=== PATIENT | male | born 1935 | race Caucasian/White ===

== ENCOUNTER 2018-05-05 16:51 | Emergency (ER) | payer MEDICARE, BC ==
--- NOTE | 2018-05-05 17:13 | ER Document Report ---
ED Medical Screen (RME) - General Chief Complaint: High Blood Sugar Stated Complaint: BLOOD SUGAR ISSUE Time Seen by Provider: 05/05/18 17:07 Notes: RAPID MEDICAL EVALUATION DISCLOSURE I have seen this patient as part of a Rapid Medical Evaluation and, if applicable, placed any initially appropriate orders. The patient will be seen and fully evaluated, including a full history and physical exam, by a provider ( in Main ED or Fast Track) when a room becomes available. 82-year-old male here with complaints of elevated blood sugars of 479 checked while he was at his PCP office. They sent him over for further evaluation due to the high sugars. He has chronic fatigue and fibromyalgia but denies any other new symptoms. He denies cough congestion runny nose sore throat nausea vomiting diarrhea dysuria frequency hesitancy chest/abdominal pain shortness of breath. He takes Lantus in the morning and evening and then takes other insulins throughout the day. He states he has not missed any doses of his medications recently nor has he had any changes in the dosing. EXAM CTAB RRR TRAVEL OUTSIDE OF THE [place] IN LAST 30 DAYS: No - Related Data Allergies/Adverse Reactions: No Known Allergies Allergy (Verified 01/16/15 19:00) Past Medical History - Past Medical History Cardiac Medical History: Reports: Hx Hypertension Pulmonary Medical History: Reports: Hx COPD Endocrine Medical History: Reports: Hx Diabetes Mellitus Type 2 Renal/ Medical History: Denies: Hx Peritoneal Dialysis Past Surgical History: Reports: Hx Cholecystectomy, Hx Nose Surgery - for deviated septum - Immunizations Hx Diphtheria, Pertussis, Tetanus Vaccination: Yes Physical Exam - Vital signs Vitals: Temp Pulse Resp BP Pulse Ox 98.3 F 71 22 H 152/70 H 94 05/05/18 16:56 05/05/18 16:56 05/05/18 16:56 05/05/18 16:56 05/05/18 16:56 Course - Vital Signs Vital signs: Temp Pulse Resp BP Pulse Ox 98.3 F 71 22 H 152/70 H 94 05/05/18 16:56 05/05/18 16:56 05/05/18 16:56 05/05/18 16:56 05/05/18 16:56
--- NOTE | 2018-05-05 17:42 | RADIOLOGY REPORT (SQ) ---
EXAM DESCRIPTION: CHEST 2 VIEWS COMPLETED DATE/TIME: 05/05/2018 5:31 pm REASON FOR STUDY: eval pneumonia COMPARISON: 2009 NUMBER OF VIEWS: Two view. TECHNIQUE: Frontal and lateral radiographic views of the chest acquired. LIMITATIONS: None. FINDINGS: LUNGS AND PLEURA: No opacities, masses or pneumothorax. No pleural effusion. MEDIASTINUM AND HILAR STRUCTURES: No masses. No contour abnormalities. HEART AND VASCULAR STRUCTURES: Heart normal in size and contour. No evidence for failure. BONES: No acute findings. HARDWARE: None in the chest. OTHER: No other significant finding. IMPRESSION: No acute cardiopulmonary disease. Stable chest. TECHNICAL DOCUMENTATION: JOB ID: [id number] 1996 [employer]- All Rights Reserved Reading location - IP/workstation name: [email or web address]
[2018-05-05 17:58] LABS: ABSOLUTE BASOPHILS # (AUTO) 0.1 10^3/uL (0.0-0.2); ABSOLUTE EOSINOPHILS # (AUTO) 0.6 10^3/uL (0.0-0.6); ABSOLUTE MONOCYTES (AUTO) 0.7 10^3/uL (0.1-1.4); ABSOLUTE NEUT (AUTO) 5.4 10^3/uL (1.7-8.2); EOSINOPHILS % (AUTO) 6.4 % (0-6); HEMATOCRIT 41.1 % (37.9-51.0); HEMOGLOBIN 13.9 g/dL (13.5-17.0); LYMPHOCYTES % (AUTO) 22.7 % (13-45); MEAN CORPUSCULAR HEMOGLOBIN 31.7 pg (27.0-33.4); MEAN CORPUSCULAR HGB CONC 33.8 g/dL (32.0-36.0); MEAN CORPUSCULAR VOLUME 94 fl (80-97); MONOCYTES % (AUTO) 8.3 % (3-13); PLATELET COUNT 161 10^3/uL (150-450); RED BLOOD COUNT 4.38 10^6/uL (4.35-5.55); RED CELL DISTRIBUTION WIDTH 12.8 % (11.5-14.0); SEGMENTED NEUTROPHILS % (AUTO) 61.6 % (42-78); TOTAL CELLS COUNTED % (AUTO) 100 %; WHITE BLOOD COUNT 8.7 10^3/uL (4.0-10.5)
[2018-05-05 18:00] LABS: VENOUS BLOOD BASE EXCESS 4.5 mmol/L; VENOUS BLOOD HCO3 29.7 mmol/L (20-32); VENOUS BLOOD PCO2 46.3 mmHg (35-63); VENOUS BLOOD PH 7.43 (7.30-7.42)
[2018-05-05 18:18] LABS: ALANINE AMINOTRANSFERASE 73 U/L (21-72); ALBUMIN 4.1 g/dL (3.5-5.0); ALKALINE PHOSPHATASE 115 U/L (38-126); ANION GAP 12 (5-19); ASPARTATE AMINO TRANSFERASE 58 U/L (17-59); BILIRUBIN,DIRECT 0.3 mg/dL (0.0-0.4); BILIRUBIN,TOTAL 0.5 mg/dL (0.2-1.3); BLOOD UREA NITROGEN 25 mg/dL (7-20); CALCIUM 9.5 mg/dL (8.4-10.2); CARBON DIOXIDE 30 mmol/L (22-30); CHLORIDE 99 mmol/L (98-107); GLUCOSE 390 mg/dL (75-110); POTASSIUM 5.1 mmol/L (3.6-5.0); SODIUM 140.8 mmol/L (137-145); TOTAL PROTEIN 7.4 g/dL (6.3-8.2)
[2018-05-05 19:07] LABS: APPEARANCE,URINE CLEAR; BILIRUBIN,URINE NEGATIVE (NEGATIVE); COLOR,URINE YELLOW; GLUCOSE, URINE >=500 mg/dL (NEGATIVE); KETONES,URINE NEGATIVE (NEGATIVE); LEUKOCYTE ESTERASE,URINE NEGATIVE (NEGATIVE); NITRITE,URINE NEGATIVE (NEGATIVE); PROTEIN,URINE NEGATIVE (NEGATIVE); URINE SPECIFIC GRAVITY 1.022; UROBILINOGEN,URINE NEGATIVE mg/dL (<2.0)
[2018-05-05] MEDS ORDERED: NORMAL SALINE 1000 ML 1,000 ML IV ONE (19:56)
[2018-05-05] MEDS ORDERED: INSULIN REG, HUMAN 100 UNIT/ML 3 ML VIAL (PYX) SUBCUT ONE (20:11)
--- NOTE | 2018-05-05 21:09 | ER Document Report ---
ED Blood Sugar Problem - General Mode of Arrival: Ambulatory Information source: Patient TRAVEL OUTSIDE OF THE [place] IN LAST 30 DAYS: No <JASON CHAN - Last Filed: 05/06/18 00:39> <ANDRÉS SARABIA - Last Filed: 05/06/18 00:42> - General Chief Complaint: High Blood Sugar Stated Complaint: BLOOD SUGAR ISSUE Time Seen by Provider: 05/05/18 17:07 Notes: Patient is an 82 year old male with diabetes presents to the emergency department complaining of high blood sugar onset the last 4-5 days. Patient was seen at his PCP's office this morning where is blood sugar was found to be 479 after which he was sent to the emergency department for further evaluation. Patient states he has been taking his medications and even upped his dosage of Lantus from 60 units to 65 units and 10 units of Novalog to 12 units. Patient admits to multiple dietary indiscretions further stating he does not care if he lives anymore but denies any suicidal plans. He states he just does not want to take care of himself anymore. Patient denies any blurry vision or dysuria. (JASON CHAN) - Related Data Allergies/Adverse Reactions: No Known Allergies Allergy (Verified 01/16/15 19:00) Past Medical History - General Information source: Patient - Social History Smoking Status: Never Smoker Family History: Reviewed & Not Pertinent Patient has suicidal ideation: No Patient has homicidal ideation: No - Past Medical History Cardiac Medical History: Reports: Hx Hypertension Pulmonary Medical History: Reports: Hx COPD Endocrine Medical History: Reports: Hx Diabetes Mellitus Type 2 Past Surgical History: Reports: Hx Cholecystectomy, Hx Nose Surgery - for deviated septum - Immunizations Hx Diphtheria, Pertussis, Tetanus Vaccination: Yes <JASON CHAN - Last Filed: 05/06/18 00:39> Review of Systems - Review of Systems Constitutional: See HPI EENT: No symptoms reported Cardiovascular: No symptoms reported Respiratory: No symptoms reported Gastrointestinal: No symptoms reported Genitourinary: No symptoms reported Male Genitourinary: No symptoms reported Musculoskeletal: No symptoms reported Skin: No symptoms reported Hematologic/Lymphatic: No symptoms reported Neurological/Psychological: No symptoms reported -: Yes All other systems reviewed and negative <JASON CHAN - Last Filed: 05/06/18 00:39> Physical Exam <JASON CHAN - Last Filed: 05/06/18 00:39> <ANDRÉS SARABIA - Last Filed: 05/06/18 00:42> - Vital signs Vitals: Temp Pulse Resp BP Pulse Ox 98.3 F 71 22 H 152/70 H 94 05/05/18 16:56 05/05/18 16:56 05/05/18 16:56 05/05/18 16:56 05/05/18 16:56 - Notes Notes: GENERAL: Alert, interacts well. No acute distress. HEAD: Normocephalic, atraumatic. EYES: Pupils equal, round, and reactive to light. Extraocular movements intact. ENT: Oral mucosa moist, tongue midline. NECK: Full range of motion. Supple. Trachea midline. LUNGS: Clear to auscultation bilaterally, no wheezes, rales, or rhonchi. No respiratory distress. HEART: Regular rate and rhythm. No murmurs, gallops, or rubs. ABDOMEN: Soft, non-tender. Non-distended. Bowel sounds present in all 4 quadrants. EXTREMITIES: Moves all 4 extremities spontaneously. No edema, radial and dorsalis pedis pulses 2/4 bilaterally. No cyanosis. NEUROLOGICAL: Alert and oriented x3. Normal speech. PSYCH: Normal affect, normal mood. Became tearful when discussing depression. SKIN: Warm, dry, normal turgor. No rashes or lesions noted. (JASON CHAN) Course - Laboratory Result Diagrams: 05/05/18 17:35 05/05/18 17:35 <JASON CHAN - Last Filed: 05/06/18 00:39> - Laboratory Result Diagrams: 05/05/18 17:35 05/05/18 17:35 <ANDRÉS SARABIA - Last Filed: 05/06/18 00:42> - Re-evaluation Re-evalutation: 05/05/18 22:13 CBC shows increased eosinophils at 6.4 no leukocytosis otherwise unremarkable, blood gas does not show any acidosis, BMP shows slightly decreased renal function which is not unexpected given his age and his noncompliance with his diabetic diet, glucose is elevated at 390, no evidence of ketosis, urinalysis shows greater than 500 glucose but no ketones, no signs of infection, chest x- ray also shows no signs of infection. Patient admits multiple dietary indiscretions. Initially he stated that he is trying to kill himself by not following his diabetic diet. He stated he would feel better after he had some water to drink. I did go back and check on the patient again, he denies suicidal ideation, states that he does feel depressed but is not actually trying to kill himself. Is not interested in following up with a counselor as an outpatient. I do think this patient is depressed but he does not meet involuntary commitment criteria. Patient will be discharged to home with recommendations to follow-up with his primary care physician, try to follow his diabetic diet a little bit more closely and given instructions on how to use sliding scale insulin. (ANDRÉS SARABIA) - Vital Signs Vital signs: Temp Pulse Resp BP Pulse Ox 98.6 F 71 18 156/64 H 95 05/05/18 22:43 05/05/18 22:43 05/05/18 22:43 05/05/18 22:43 05/05/18 22:43 - Laboratory Laboratory results interpreted by me: 05/05/18 05/05/18 05/05/18 17:35 17:35 17:35 Eosinophils % 6.4 H VBG pH 7.43 H Potassium 5.1 H BUN 25 H Creatinine 1.36 H Est GFR (Non-Af Amer) 50 L Glucose 390 H POC Glucose ALT 73 H Urine Glucose (UA) Urine Ascorbic Acid 05/05/18 05/05/18 05/05/18 17:35 17:46 20:29 Eosinophils % VBG pH Potassium BUN Creatinine Est GFR (Non-Af Amer) Glucose POC Glucose 387 H 306 H ALT Urine Glucose (UA) >=500 H Urine Ascorbic Acid 40 H 05/05/18 22:22 Eosinophils % VBG pH Potassium BUN Creatinine Est GFR (Non-Af Amer) Glucose POC Glucose 250 H ALT Urine Glucose (UA) Urine Ascorbic Acid Discharge <JASON CHAN - Last Filed: 05/06/18 00:39> <ANDRÉS SARABIA - Last Filed: 05/06/18 00:42> - Discharge Clinical Impression: Noncompliance with diabetes treatment Hyperglycemia due to type 2 diabetes mellitus 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 Please continue to follow-up with your primary care physician. Please discuss with them your elevated blood sugars over the past few days. Today we did not identify any specific cause for your elevated blood sugars beyond not following your diabetic diet. Please add an additional 2 units of insulin to your usual basal (long acting) insulin as long as your blood sugar is elevated until you see your primary care physician. If your blood sugars no longer elevated then please go back to your usual insulin. Referrals: SHRUTI ALMANZAR MD [Primary Care Provider] - Follow up in 3-5 days Scribe Attestation: 05/06/18 00:42 I personally performed the services described in the documentation, reviewed and edited the documentation which was dictated to the scribe in my presence, and it accurately records my words and actions. (ANDRÉS SARABIA) Scribe Documentation - Scribe Written by Sharita:: Sharita Jenkins, 05/05/2018 21:26 acting as scribe for :: Sandrine <JASON CHAN - Last Filed: 05/06/18 00:39>
[2018-05-05 23:04] VITALS: BP 156/64
== END 2018-05-05 22:40 | disposition home or self-care (01) ==
LOC: ER 16:51
DX: E11.65 Type 2 diabetes mellitus with hyperglycemia (principal); Z91.14 Patient's other noncompliance with medication regimen; Z79.4 Long term (current) use of insulin; Z90.49 Acquired absence of other specified parts of digestive tract
CPT/HCPCS: 99285; 36415; 82962; 85025; 80053; 81001; 82803; 71046; A9270; J7030; J1815

== ENCOUNTER → 2020-01-11 | Outpatient (CLI) | payer OTHER ==
--- NOTE | 2020-01-11 14:11 | RADIOLOGY REPORT (SQ) ---
EXAM DESCRIPTION: U/S RETROPERITON (RENAL/AORTA) COMPLETED DATE/TIME: 01/11/2020 12:00 pm REASON FOR STUDY: (N18.3)CHRONIC KIDNEY DISEASE, STAGE 3 (MODERATE) N18.3 CHRONIC KIDNEY DISEASE, S TAGE 3 (MODERATE) COMPARISON: None. TECHNIQUE: Dynamic and static grayscale images acquired of the kidneys and bladder and recorded on P ACS. Additional selected color Doppler and spectral images recorded. LIMITATIONS: None. FINDINGS: RIGHT KIDNEY: Normal size, 10.3 cm. Normal echogenicity. No solid or suspicious masses. No hydronephrosis. No calcifications. LEFT KIDNEY: Normal size, 11.5 cm. Normal echogenicity. No solid or suspicious masses. No hydronephr osis. No calcifications. BLADDER: Ureteral jets are not seen. No bladder mass. OTHER FINDINGS: No other significant finding. IMPRESSION: NORMAL RENAL AND BLADDER ULTRASOUND. TECHNICAL DOCUMENTATION: JOB ID: [id number] 2010 [employer]- All Rights Reserved Reading location - IP/workstation name: [email or web address]
== END ==
LOC: RAD 10:49
PROVIDERS: ATTEND Internal Medicine Nephrology
DX: E11.22 Type 2 diabetes mellitus with diabetic chronic kidney disease (principal); I12.9 Hypertensive chronic kidney disease with stage 1 through stage 4 chronic kidney disease, or unspecified chronic kidney disease; N18.3 Chronic kidney disease, stage 3 (moderate); M19.90 Unspecified osteoarthritis, unspecified site
CPT/HCPCS: 76770

== ENCOUNTER → 2020-04-03 | Outpatient (CLI) | payer MEDICARE, BC ==
[2020-04-03 13:57] LABS: ABSOLUTE EOSINOPHILS # (AUTO) 0.1 10^3/uL (0.0-0.6); ABSOLUTE MONOCYTES (AUTO) 0.4 10^3/uL (0.1-1.4); ABSOLUTE NEUT (AUTO) 5.3 10^3/uL (1.7-8.2); BASOPHILS % (AUTO) 0.6 % (0-2); EOSINOPHILS % (AUTO) 1.5 % (0-6); HEMATOCRIT 35.8 % (37.9-51.0); HEMOGLOBIN 12.2 g/dL (13.5-17.0); LYMPHOCYTES % (AUTO) 14.9 % (13-45); MEAN CORPUSCULAR HEMOGLOBIN 32.9 pg (27.0-33.4); MEAN CORPUSCULAR HGB CONC 34.2 g/dL (32.0-36.0); MEAN CORPUSCULAR VOLUME 96 fl (80-97); PLATELET COUNT 139 10^3/uL (150-450); RED BLOOD COUNT 3.72 10^6/uL (4.35-5.55); RED CELL DISTRIBUTION WIDTH 13.3 % (11.5-14.0); TOTAL CELLS COUNTED % (AUTO) 100 %; WHITE BLOOD COUNT 6.9 10^3/uL (4.0-10.5)
[2020-04-03 14:12] LABS: ANION GAP 7 (5-19); BLOOD UREA NITROGEN 31 mg/dL (7-20); CALCIUM 8.8 mg/dL (8.4-10.2); CARBON DIOXIDE 27 mmol/L (22-30); CHLORIDE 101 mmol/L (98-107); PHOSPHORUS 3.9 mg/dL (2.5-4.5); POTASSIUM 4.1 mmol/L (3.6-5.0)
[2020-04-03 14:31] LABS: GLUCOSE 467 mg/dL (75-110)
== END ==
LOC: OD 13:31
PROVIDERS: ATTEND Internal Medicine Nephrology
DX: E11.22 Type 2 diabetes mellitus with diabetic chronic kidney disease (principal); I12.9 Hypertensive chronic kidney disease with stage 1 through stage 4 chronic kidney disease, or unspecified chronic kidney disease; N18.4 Chronic kidney disease, stage 4 (severe); E83.42 Hypomagnesemia; M19.90 Unspecified osteoarthritis, unspecified site
CPT/HCPCS: 36415; 80048; 83735; 83970; 84100; 85025